=== PATIENT | male | born 1975 | race African-American/Black ===

== ENCOUNTER 2018-08-31 12:24 | Outpatient (CLI) | payer BC, OTHER ==
--- NOTE | 2018-08-31 13:35 | HP ---
HISTORY OF PRESENT ILLNESS: Mr. Melchor Linda is a very pleasant 42-year-old gentleman, who presents to the Wound Center for evaluation of ulcerations of the left lower leg in the region of the malleoli. The patient has one ulceration in the region of the left medial malleolus and one ulceration in the region of the left lateral malleolus. The patient states that he has had 1 to 2 ulcerations of the left lower leg in the region of the medial malleolus present on an intermittent basis since 2007. The patient states that for the ulcerations, he has been seen by multiple providers. He states that he is presently utilizing compression garments. He states that the ulcerations have responded to treatment with compression in the past. The patient states that he for the time treated the ulcerations with Neosporin, but discontinued Neosporin because of an allergy to Neosporin. The patient states that very recently, he was seen at the [facility] for his wounds. He states that previously he has been treated with Aquacel Ag and collagen for the wounds. The patient states he has an appointment with Dr. Traore for evaluation for venous ablation in the next few weeks. The patient was referred to the Wound Center by Dr. Hendrix on 08/25/2018. PAST MEDICAL HISTORY: History of deep venous thrombosis in 2003. PAST SURGICAL HISTORY: Left knee surgery in 1992. MEDICATIONS: 1. Xarelto. 2. Aspirin as needed. 3. Aleve as needed. ALLERGIES: NEOSPORIN, LATEX. SOCIAL HISTORY: The patient denies any history of tobacco use. He admits to the occasional consumption of alcohol. FAMILY HISTORY: Family history significant for diabetes mellitus. The patient states that his mother was diagnosed with diabetes mellitus. Family history is negative for coronary artery disease. PHYSICAL EXAMINATION: VITAL SIGNS: Temperature 97.7, pulse 60, respirations 16, and blood pressure 137/80. GENERAL: A 42-year-old gentleman sitting on chair in examination room, in no acute distress. HEENT: Normocephalic, atraumatic. NECK: No nuchal rigidity. CHEST: Clear to auscultation. CARDIOVASCULAR: Regular rate and rhythm. ABDOMEN: Soft. EXTREMITIES: An ulceration of the left lower leg in the region of the medial malleolus is present and measures approximately 0.5 x 0.7 cm. An ulceration of the left lower leg in the region of the lateral malleolus is present and measures approximately 1.7 x 1.1 cm. Granulation tissue is visible within the margins of each wound. Nonviable tissue present within the margins of each wound was debrided with an excisional full-thickness debridement. No purulent drainage is associated with either wound. No erythema of the skin surrounding either wound is present. No maceration of the skin of the periwound of either wound is noted. A dorsalis pedis pulse is easily palpable on the left. No significant edema of the left foot or lower leg is appreciated on exam today. NEURO: Grossly nonfocal. ASSESSMENT AND PLAN: Chronic venous hypertension with ulcer. The patient's medical history is significant for deep venous thrombosis in 2003. Silverlon, followed by an ABD and the 3M Coban 2 Layer Compression System will be applied to the ulcerations today. The patient is to return to the Wound Center in 1 week for a dressing change. I will see Mr. Linda again in 2 weeks. No antibiotics will be prescribed today. Based upon the appearance of the wounds, the patient has been reminded to keep his appointment with Dr. Traore for evaluation for venous ablation. The patient understands and is in agreement with the preceding treatment plan. Job ID: [id number]
[2018-08-31] MEDS ORDERED: Lidocaine 2% 11 ML SYR ONE (18:00)
[2018-08-31] MEDS ORDERED: Sodium Chloride 0.9% 15 ML NEB ONE (18:00)
== END 2018-08-31 12:25 | disposition home or self-care (01) ==
LOC: WCC 12:24
PROVIDERS: ATTEND Family Medicine
DX: I87.312 Chronic venous hypertension (idiopathic) with ulcer of left lower extremity (principal); L97.929 Non-pressure chronic ulcer of unspecified part of left lower leg with unspecified severity
CPT/HCPCS: 11042; 99203; A4218; G0463

== ENCOUNTER 2018-09-07 10:27 | Outpatient (CLI) | payer BC ==
[2018-09-07] MEDS ORDERED: Sodium Chloride 0.9% 15 ML NEB ONE (16:49)
== END 2018-09-07 10:28 | disposition home or self-care (01) ==
LOC: WCC 10:27
PROVIDERS: ATTEND Family Medicine
DX: I87.312 Chronic venous hypertension (idiopathic) with ulcer of left lower extremity (principal); L97.829 Non-pressure chronic ulcer of other part of left lower leg with unspecified severity
CPT/HCPCS: 29581; A4218

== ENCOUNTER 2018-09-14 10:57 | Outpatient (CLI) | payer BC ==
--- NOTE | 2018-09-14 11:34 | PRG ---
DATE OF SERVICE: 09/14/2018 HISTORY: Mr. Melchor Linda is a very pleasant 42-year-old gentleman, who presents to the wound center for evaluation of ulcerations of the left lower leg in the region of the malleoli. The patient has 1 ulceration in the region of the left medial malleolus and 1 ulceration in the region of the left lateral malleolus. The patient previously stated that he had had 1 to 2 ulcerations of the left lower leg in the region of the medial malleolus present on an intermittent basis since 2007. The patient stated that for the ulcerations, he had been seen by multiple providers. He stated that he had been utilizing compression garments when he initially presented to the wound center. He stated that the ulcerations had responded to treatment with compression in the past. He stated that for a time, he treated the ulcerations with Neosporin, but discontinued Neosporin because of an allergy to Neosporin. The patient stated that he previously had been treated with Aquacel Ag and collagen for his wounds. The patient also stated that he had an appointment with Dr. Traore, for evaluation for venous ablation. The patient was referred to the wound center by Dr. Hendrix on 08/25/2018. PHYSICAL EXAMINATION: VITAL SIGNS: Temperature 97.9, pulse 59, respirations 17, and blood pressure 123/73. EXTREMITIES: An ulceration of the left lower leg in the region of the lateral malleolus is present, which measures approximately 1.9 x 1.1 cm. Nonviable tissue present within the wound margins was debrided with an excisional full-thickness debridement. No purulent drainage is associated with the wound. No erythema of the skin surrounding the wound is present. No maceration of the skin of the periwound is noted. No significant edema of the left foot or lower leg is appreciated on exam today. ASSESSMENT AND PLAN: Chronic venous hypertension with ulcer. The patient's medical history significant for deep venous thrombosis in 2003, SilvaSorb sheet, followed by Webril and the 3M Coban 2 Layer Compression System will be applied to the ulceration today. I will see Mr. Linda again in 1 week. As stated above, the patient has an appointment with Dr. Traore, for evaluation for venous ablation. Job ID: [id number]
[2018-09-14] MEDS ORDERED: Sodium Chloride 0.9% 15 ML NEB ONE (13:00)
[2018-09-14] MEDS ORDERED: Lidocaine 2% PF 100 mg/5 ml Syringe ONE (13:00)
== END 2018-09-14 10:58 | disposition home or self-care (01) ==
LOC: WCC 10:57
PROVIDERS: ATTEND Family Medicine
DX: I87.312 Chronic venous hypertension (idiopathic) with ulcer of left lower extremity (principal); L97.829 Non-pressure chronic ulcer of other part of left lower leg with unspecified severity; Z86.718 Personal history of other venous thrombosis and embolism
CPT/HCPCS: 29581; A4218; J2001

== ENCOUNTER 2018-09-21 08:43 | Outpatient (CLI) | payer BC ==
[~2018-09-21 08:43] MED LIST: Lidocaine 2% PF 100 mg/5 ml Syringe ONE; Sodium Chloride 0.9% 15 ML NEB ONE
--- NOTE | 2018-09-21 09:41 | PRG ---
DATE OF SERVICE: 09/21/2018 HISTORY: Mr. Melchor Linda is a very pleasant 42-year-old gentleman, who presents to the Wound Center for evaluation of ulcerations of the left lower leg in the region of the malleoli. The patient has one ulceration in the region of the left medial malleolus and one ulceration in the region of the left lateral malleolus. The patient previously stated that he had 1 to 2 ulcerations of the left lower leg in the region of the medial malleolus present on an intermittent basis since 2007. The patient stated that for the ulcerations, he had been seen by multiple providers. He stated that he had been utilizing compression garments when he initially presented to the Wound Center. He stated that the ulcerations had responded to treatment with compression in the past. He stated that for a time, he treated the ulcerations with Neosporin, but discontinued Neosporin because of an allergy to Neosporin. The patient stated that he previously had been treated with Aquacel Ag and collagen for his wounds. The patient also stated that he had an appointment with Dr. Traore for evaluation for venous ablation. Today, the patient states that his appointment with Dr. Traore is on 09/26/2018. The patient was referred to the Wound Center by Dr. Hendrix on 08/25/2018. PHYSICAL EXAMINATION: VITAL SIGNS: Temperature 97.8, pulse 64, respirations 18, and blood pressure 152/85. EXTREMITIES: An ulceration of the left lower leg in the region of the lateral malleolus is present, which measures approximately 1.0 x 1.8 cm. The dimensions of the wound at the time of the patient's last visit were approximately 1.9 x 1.1 cm. The wound is granulating, nonviable tissue present within the wound margins was debrided with an excisional full-thickness debridement. No purulent drainage is associated with the wound. No erythema of the skin surrounding the wound is present. No maceration of the skin of the periwound is noted. A dorsalis pedis pulse is easily palpable on the left. No significant edema of the left foot or lower leg is present on exam today. The ulceration of the left medial lower leg in the region of the medial malleolus is covered by dry stable eschar. ASSESSMENT AND PLAN: Chronic venous hypertension with ulcers. The patient's medical history is significant for deep venous thrombosis in 2003, SilvaSorb sheet, followed by Webril and the 3M Coban 2 Layer Compression System will be applied to the ulceration today. I will see Mr. Linda again in 1 week. The patient states that he will keep his appointment with Dr. Traore for evaluation for venous ablation. As per his request, the patient will also be referred to Dr. Wong for the ulceration of the left lower leg in the region of the lateral malleolus. Job ID: [id number]
== END 2018-09-21 08:44 | disposition home or self-care (01) ==
LOC: WCC 08:43
PROVIDERS: ATTEND Family Medicine
DX: I87.312 Chronic venous hypertension (idiopathic) with ulcer of left lower extremity (principal); L97.929 Non-pressure chronic ulcer of unspecified part of left lower leg with unspecified severity
CPT/HCPCS: 11042; A4218; J2001

== ENCOUNTER 2018-09-28 09:04 | Outpatient (CLI) | payer BC ==
--- NOTE | 2018-09-28 10:16 | PRG ---
DATE OF SERVICE: 09/28/2018 HISTORY: Mr. Melchor Linda is a very pleasant 42-year-old gentleman who presents to the Wound Center for evaluation of ulcerations of the left lower leg in the region of the malleoli. The patient has one ulceration in the region of the left medial malleolus and one ulceration in the region of the left lateral malleolus. The patient previously stated that he had 1 to 2 ulcerations of the left lower leg in the region of the medial malleolus present on an intermittent basis since 2007. The patient stated that for the ulcerations, he had been seen by multiple providers. He stated that he had been utilizing compression garments when he initially presented to the Wound Center. He stated that the ulcerations had responded to treatment with compression in the past. He stated that for a time he treated the ulcerations with Neosporin, but discontinued Neosporin because of an allergy to Neosporin. The patient stated that he previously had been treated with Aquacel Ag and collagen for his wounds. The patient also stated that he had an appointment with Dr. Traore for evaluation for venous ablation. Today, the patient states that he has been seen by Dr. Traore and scheduled for a venous ultrasound followed by another appointment with Dr. Traore. PHYSICAL EXAMINATION: VITAL SIGNS: Temperature 97.9, pulse 61, respirations 19, and blood pressure 132/82. EXTREMITIES: Ulceration in the region of the medial malleolus has healed completely. Only, the ulceration in the region of the lateral malleolus remains, which measures approximately 1.8 x 0.9 cm. The dimensions of the wound at the time of the patient's last visit were approximately 1.8 x 1.0 cm. The wound is granulating nonviable tissue present within the wound margins, was debrided with an excisional full-thickness debridement with the use of a curette. No purulent drainage is associated with the wound. No erythema of the skin surrounding the wound is present. No maceration of the skin of the periwound is noted. A dorsalis pedis pulse is easily palpable on the left. No significant edema of the left foot or lower leg is present on exam today. ASSESSMENT AND PLAN: 1. Chronic venous hypertension with ulcers. The patient's medical history significant for deep venous thrombosis in 2003, SilvaSorb sheet, followed by Webril and the 3M Coban 2 Layer Compression System will be applied to the ulceration today. 2. ABDs will be utilized as needed at the time of dressing changes. I will see Mr. Linda again in 1 week. The patient has also been given a prescription for Ultram. Job ID: [id number]
[2018-09-28] MEDS ORDERED: Sodium Chloride 0.9% 15 ML NEB ONE (18:00)
[2018-09-28] MEDS ORDERED: Lidocaine 2% 11 ML SYR ONE (18:00)
== END 2018-09-28 09:05 | disposition home or self-care (01) ==
LOC: WCC 09:04
PROVIDERS: ATTEND Family Medicine
DX: I87.312 Chronic venous hypertension (idiopathic) with ulcer of left lower extremity (principal); L97.929 Non-pressure chronic ulcer of unspecified part of left lower leg with unspecified severity; Z86.718 Personal history of other venous thrombosis and embolism
CPT/HCPCS: A4218

== ENCOUNTER 2018-10-05 08:19 | Outpatient (CLI) | payer BC ==
--- NOTE | 2018-10-05 10:30 | PRG ---
DATE OF SERVICE: 10/05/2018 HISTORY: Mr. Melchor Linda is a very pleasant 42-year-old gentleman, who presents to the Wound Center for evaluation of ulcerations of the left lower leg in the region of the malleolus. The patient has 1 ulceration in the region of the left medial malleolus and 1 ulceration in the region of the left lateral malleolus. The patient previously stated that he had 1 to 2 ulcerations of the left lower leg in the region of the medial malleolus present on an intermittent basis since 2007. He stated that for the ulcerations, he had been seen by multiple providers. He stated that he had been utilizing compression garments when he initially presented to the Wound Center. He stated that the ulcerations had responded to treatment with compression in the past. He stated that for a time, he treated the ulcerations with Neosporin, but discontinued Neosporin because of an allergy to Neosporin. The patient stated that he previously had been treated with Aquacel Ag and collagen for his wounds. The patient also stated that he is being seen by Dr. Traore, for evaluation for venous ablation. PHYSICAL EXAMINATION: VITAL SIGNS: Temperature 97.5, pulse 60, respirations 18, blood pressure 130/63. EXTREMITIES: The ulceration in the region of the medial malleolus has healed completely and remains healed. Only the ulceration in the region of the lateral malleolus remains, which measures approximately 1.5 x 0.8 cm. The dimensions of the wound at the time of the patient's last visit were approximately 1.8 x 0.9 cm. The wound is granulating. Nonviable tissue present within the wound margins was debrided with an excisional full-thickness debridement with the use of a curette. No purulent drainage is associated with the wound. No erythema of the skin surrounding the wound is present. No maceration of the skin of the periwound is noted. No significant edema of the left foot or lower leg is present on exam today. ASSESSMENT AND PLAN: Chronic venous hypertension with ulcers. The patient's medical history is significant for deep venous thrombosis in 2003. The patient declines application of the 3M Coban 2 Layer Compression System today. Therefore, the ulceration will be dressed with SilvaSorb gel, followed by and an Garett bandage. The patient is to perform dressing changes of SilvaSorb gel followed by a secondary dressing and an Garett bandage after cleansing and irrigation until his next visit in the Wound Center 1 week from today. Job ID: [id number]
[2018-10-05] MEDS ORDERED: Lidocaine 2% 11 ML SYR ONE (20:11)
[2018-10-05] MEDS ORDERED: Sodium Chloride 0.9% 15 ML NEB ONE (20:11)
== END 2018-10-05 08:20 | disposition home or self-care (01) ==
LOC: WCC 08:19
PROVIDERS: ATTEND Family Medicine
DX: I87.312 Chronic venous hypertension (idiopathic) with ulcer of left lower extremity (principal); L97.929 Non-pressure chronic ulcer of unspecified part of left lower leg with unspecified severity
CPT/HCPCS: A4218

== ENCOUNTER 2019-01-02 09:58 | Outpatient (CLI) | payer BC ==
--- NOTE | 2019-01-02 10:25 | PRG ---
DATE OF SERVICE: 01/02/2019 HISTORY OF PRESENT ILLNESS: Mr. Melchor Linda is a very pleasant 43-year-old gentleman, who presents to the Wound Center for evaluation of ulcerations of the left lower leg in the region of the malleolus. The patient has one ulceration in the region of the left medial malleolus and one ulceration in the region of the left lateral malleolus. The patient previously stated that he had 1 to 2 ulcerations of the left lower leg in the region of the medial malleolus present on an intermittent basis since 2007. He stated that for the ulcerations, he had been seen by multiple providers. He stated that he had been utilizing compression garments when he initially presented to the Wound Center. He stated that the ulcerations had responded to treatment with compression in the past. He stated that for a time, he treated the ulcerations with Neosporin, but discontinued Neosporin because of an allergy to Neosporin. The patient stated that he previously had been treated with Aquacel Ag and collagen for his wounds. The patient stated that he has been seen by Dr. Traore for evaluation for venous ablation. The patient states that he was told by Dr. Traore that he was not a candidate for any procedures such as venous ablation or iliac vein stenting. PHYSICAL EXAMINATION: VITAL SIGNS: Temperature 98.1, pulse 65, respirations 16, and blood pressure 136/70. EXTREMITIES: The ulceration in the region of the medial malleolus measures approximately 1.1 x 0.8 cm. The ulceration in the region of the lateral malleolus measures approximately 0.3 x 0.7 cm. The dimensions of the wound at the time of the patient's last visit were approximately 1.5 x 0.8 cm. The wound is granulating. No purulent drainage is associated with the wound. No erythema of the skin surrounding the wound is present. No maceration of the skin of the periwound is noted. No significant edema of the left foot or lower leg is present on exam today. ASSESSMENT AND PLAN: Chronic venous hypertension with ulcers. The patient's medical history is significant for deep venous thrombosis in 2003. Dressing changes of SilvaSorb gel sheet will be continued. Arrangements will be made for the home delivery of dressing supplies. The patient has also been given a prescription for compression garments, knee-high, open or closed toe to yield a compression of 30 to 40 mmHg. The patient is to utilize his compression garments in conjunction with the preceding dressing changes. The patient states that he will be seeing another physician for evaluation for venous ablation or iliac vein stent placement on 01/11/2019. I will see Mr. Linda again after his 2nd evaluation. Job ID: [id number]
[2019-01-02] MEDS ORDERED: Lidocaine 2% PF 100 mg/5 ml Syringe ONE (18:00)
[2019-01-02] MEDS ORDERED: Sodium Chloride 0.9% 15 ML NEB ONE (18:00)
== END 2019-01-02 09:59 | disposition home or self-care (01) ==
LOC: WCC 09:58
PROVIDERS: ATTEND Family Medicine
DX: I87.312 Chronic venous hypertension (idiopathic) with ulcer of left lower extremity (principal); L97.829 Non-pressure chronic ulcer of other part of left lower leg with unspecified severity; Z86.718 Personal history of other venous thrombosis and embolism
CPT/HCPCS: A4218; J2001

== ENCOUNTER 2019-03-20 08:52 | Outpatient (CLI) | payer BC ==
--- NOTE | 2019-03-20 10:58 | PRG ---
DATE OF SERVICE: 03/20/2019 SUBJECTIVE: Mr. Melchor Linda is a very pleasant 43-year-old gentleman, who presents to the Wound Center for evaluation of ulcerations of the left lower leg in the region of the medial malleolus. At the time of the patient's last visit, Mr. Linda stated that he was told by Dr. Traore that he was not a candidate for any procedures such as venous ablation or iliac vein stenting for treatment of his venous ulcerations. The patient states that on his own, he sought a second opinion and has since undergone venous ablation on the left. The patient reports copious drainage associated with the ulcerations of his left medial ankle. The patient states that because of the copious drainage associated with these ulcerations, he discontinued the use of SilvaSorb gel sheet. OBJECTIVE: VITAL SIGNS: Temperature 97.4, pulse 51, respirations 18, and blood pressure 156/93. EXTREMITIES: The ulceration in the region of the medial malleolus, superior, measures approximately 2.0 x 1.5 cm. The inferior ulceration in the region of the medial malleolus measures approximately 0.7 x 0.9 cm. Granulation tissue is present within the margins of each wound. No purulent drainage is associated with either wound. No erythema of the skin surrounding either wound is present. No maceration of the skin of the periwound of either wound is noted. No significant edema of the left foot or lower leg is present on exam today. ASSESSMENT AND PLAN: Chronic venous hypertension with ulcers. The patient's medical history significant for deep venous thrombosis in 2003. As stated above, the patient has undergone venous ablation on the left since his last visit to the Wound Center. Dressing changes of Silvercel will be initiated today. These dressing changes are to be performed on a daily basis after cleansing and irrigation. The patient states he has a followup visit with his physician performing the ablation. I will see Mr. Linda again after his followup visit with his physician performing the venous ablation. The patient understands and is in agreement with the preceding treatment plan. Job ID: [id number]
[2019-03-20] MEDS ORDERED: Lidocaine 2% Jelly 5 ML TUBE ONE (17:00)
[2019-03-20] MEDS ORDERED: Sodium Chloride 0.9% 15 ML NEB ONE (17:00)
== END 2019-03-20 08:53 | disposition home or self-care (01) ==
LOC: WCC 08:52
PROVIDERS: ATTEND Family Medicine
DX: I87.312 Chronic venous hypertension (idiopathic) with ulcer of left lower extremity (principal); L97.929 Non-pressure chronic ulcer of unspecified part of left lower leg with unspecified severity
CPT/HCPCS: 97602; A4218

== ENCOUNTER 2019-06-12 08:16 | Outpatient (CLI) | payer BC ==
--- NOTE | 2019-06-12 09:24 | PRG ---
DATE OF SERVICE: 06/12/2019 HISTORY: Mr. Melchor Linda is a very pleasant 43-year-old gentleman, who presents to the Wound Center for evaluation of ulcerations of the left lower leg in the region of the medial malleolus. Since the patient's last visit, Mr. Linda has been seen by his physician performing the venous ablation. The patient states that he was told that no further ablations are necessary. The patient states that he has been performing dressing changes of SilvaSorb gel sheet for his left medial malleolar ulcerations. The patient has no other complaints today. He denies any fever or chills. PHYSICAL EXAMINATION: VITAL SIGNS: Temperature 98.2, pulse 58, respirations 16, and blood pressure 150/85. EXTREMITIES: Three small ulcerations in the region of the left medial malleolus are present. Granulation tissue is present within the margins of each wound. No purulent drainage is associated with any of the wounds. No erythema of the skin surrounding any of the wounds is present. No maceration of the skin of the periwound of any of the wounds is noted. No significant edema of the left foot or lower leg is present on exam today. ASSESSMENT AND PLAN: Chronic venous hypertension with ulcers. The patient's medical history is significant for deep venous thrombosis in 2003. As stated above, the patient has undergone venous ablation on the left. Dressing changes of SilvaSorb gel sheet will be continued after cleansing and irrigation. The patient will continue to perform his own dressing changes. The patient has been reassured that the ulcerations are healing without complications or any signs of infection. The patient states he will contact the Wound Center in order to schedule his next followup appointment. Job ID: [id number]
[2019-06-12] MEDS ORDERED: Sodium Chloride 0.9% 15 ML NEB ONE (16:35)
[2019-06-12] MEDS ORDERED: Lidocaine 2% PF 100 mg/5 ml Syringe ONE (16:35)
== END 2019-06-12 08:17 | disposition home or self-care (01) ==
LOC: WCC 08:16
PROVIDERS: ATTEND Family Medicine
DX: I87.312 Chronic venous hypertension (idiopathic) with ulcer of left lower extremity (principal); L97.329 Non-pressure chronic ulcer of left ankle with unspecified severity; Z86.718 Personal history of other venous thrombosis and embolism; Z98.890 Other specified postprocedural states
CPT/HCPCS: A4218; J2001